=== PATIENT | female | born 1940 | race Hispanic/Latino ===

== ENCOUNTER 2021-07-09 00:21 | Emergency (ER) | payer MEDICARE ==
[2021-07-09 00:30] VITALS: BP 152/96
[2021-07-09] MEDS ORDERED: ACETAMINOPHEN 500 MG TAB PO ONE (01:38)
--- NOTE | 2021-07-09 01:43 | Emergency Department Report ---
ED Fall HPI - General Chief Complaint: Fall Stated Complaint: GROUND LEVEL FALL Time Seen by Provider: 07/09/21 01:36 Source: patient Mode of arrival: Ambulatory - History of Present Illness Initial Comments: Chief complaint: "I hurt where I got my shot." HPI: This is a 80-year-old female with history of anxiety, schizophrenia, GERD, diabetes mellitus, depression, osteoporosis, GERD, hypertension, hearing impairment who presents with fall. Patient slipped from bed. Initially reported hand pain to EMS but correction at [facility]. Patient states she only hurts at the area of her shot. She received Covid vaccine dose in the left shoulder. She does not have any area of pain other than her left shoulder. MD Complaint: fall -: Gradual Place Fall Occurred: other (Personal-jail) Loss of Consciousness: none Symptoms Prior to Fall: none Location: other (Left shoulder) Location - Extremities: Left: Shoulder - Related Data Allergies Allergy/AdvReac Type Severity Reaction Status Date / Time fluphenazine [From Prolixin] AdvReac Hives Verified 07/09/21 00:30 ED Review of Systems ROS: Stated complaint: GROUND LEVEL FALL Other details as noted in HPI Skin: other (Erythematous area of injection) Neurological: headache ED Past Medical Hx - Past Medical History Previous Medical History?: Yes Hx Diabetes: Yes Hx Sickle Cell Disease: Yes Hx Arthritis: Yes Hx Psychiatric Treatment: Yes Hx Dementia: Yes Additional medical history: Anxiety, schizophrenia, GERD - Surgical History Past Surgical History?: No - Social History Smoking Status: Never Smoker Substance Use Type: None ED Physical Exam - General Limitations: No Limitations General appearance: alert, in no apparent distress, other (Does not to be in severe pain) - Head Head exam: Present: atraumatic, normocephalic - Respiratory Respiratory exam: Present: normal lung sounds bilaterally. Absent: respiratory distress, wheezes, rales, rhonchi - Cardiovascular Cardiovascular Exam: Present: regular rate, normal rhythm - GI/Abdominal GI/Abdominal exam: Present: soft. Absent: distended, tenderness, guarding, rebound - Expanded Upper Extremity Exam Left Shoulder Exam: Present: full ROM, other (There is laxity appears that the glenohumeral joint is somewhat unstable however this is symmetric when compared to the right shoulder). Absent: tenderness, swelling Upper Arm exam: Present: normal inspection, full ROM, other (3 cm erythematous area raised slightly edematous) Elbow exam: Present: normal inspection, full ROM - Neurological Exam Neurological exam: Present: alert, oriented X3 - Psychiatric Psychiatric exam: Present: normal mood, flat affect - Skin Skin exam: Present: warm, dry, intact ED Course Vital Signs 07/09/21 07/09/21 00:29 01:22 Temperature 98.7 F Pulse Rate 98 H Respiratory 1 L Rate Blood Pressure 152/96 [Left] O2 Sat by Pulse 96 99 Oximetry ED Medical Decision Making - Medical Decision Making Reported fall sliding out of bed slowly without traumatic injury. Patient has pain at the site of her injection. She has apparent chronic laxity in both shoulders. No evidence of acute dislocation. She is using the left upper extremity fluidly with full range of motion. Patient received Tylenol emergency department. Discharged home. Referred to orthopedic surgeon as needed. Critical care attestation.: If time is entered above; I have spent that time in minutes in the direct care of this critically ill patient, excluding procedure time. ED Disposition Clinical Impression: Fall Disposition: HOME / SELF CARE / HOMELESS Is pt being admited?: No Does the pt Need Aspirin: No Condition: Stable Referrals: BRANDO BALDWIN MD [Staff Physician] - as needed
== END 2021-07-09 06:39 | disposition home or self-care (01) ==
LOC: ED 00:21
DX: Z04.3 Encounter for examination and observation following other accident (principal); M79.642 Pain in left hand; F20.9 Schizophrenia, unspecified; E11.9 Type 2 diabetes mellitus without complications; I10 Essential (primary) hypertension; M19.90 Unspecified osteoarthritis, unspecified site; Z79.899 Other long term (current) drug therapy; F03.90 Unspecified dementia, unspecified severity, without behavioral disturbance, psychotic disturbance, mood disturbance, and anxiety
CPT/HCPCS: 99283

== ENCOUNTER 2022-05-17 10:58 | Outpatient (CLI) | payer MEDICARE ==
--- NOTE | 2022-05-20 12:11 | Mammography Report ---
DIGITAL SCREENING MAMMOGRAM WITH CAD, 05/17/2022 CLINICAL INFORMATION / INDICATION: Routine screening mammography. TECHNIQUE: Digital bilateral 2D mammography was obtained in the craniocaudal and mediolateral obliqu e projections. This examination was interpreted with the benefit of Computer-Aided Detection analysis . COMPARISON: None available. FINDINGS: Breast Density: The breasts are almost entirely fatty. No dominant mass, suspicious calcifications, or architectural distortion in either breast. IMPRESSION: No mammographic evidence of malignancy. Follow up recommendation: Routine yearly screening mammogram. BI-RADS Category 1: NEGATIVE A "normal" or negative report should not discourage follow up or biopsy of a clinically significant f inding. A written summary of these findings will be mailed to the patient. The patient will be entered into a mammography reporting system which will generate a reminder letter for the patient's next appointmen t at the appropriate interval. The [employer] recommends yearly mammograms starting at age 40 and continuing as l scott as a woman is in good health. Breast MRI is recommended for women with an approximate 20-25% or greater lifetime risk of breast cancer, including women with a strong family history of breast or ova anders cancer or who have been treated for Hodgkin's disease. Signer Name: Unique Quiros MD Signed: 05/20/2022 12:07 PM Workstation Name: [id number]
== END 2022-05-17 10:59 | disposition home or self-care (01) ==
LOC: MAMMO 10:58
DX: Z12.31 Encounter for screening mammogram for malignant neoplasm of breast (principal)
CPT/HCPCS: 77067